=== PATIENT | female | born 1955 | race Caucasian/White ===

== ENCOUNTER 2020-06-10 16:49 | Outpatient (REF) | payer OTHER, SELFPAY ==
[2020-06-10 17:24] LABS: COVID-19 Test Negative (Negative)
== END 2020-06-10 16:50 | disposition home or self-care (01) ==
LOC: HO.LAB 16:49
PROVIDERS: PCP Internal Medicine; Visit Provider Internal Medicine
DX: Z20.828 Contact with and (suspected) exposure to other viral communicable diseases (principal)
CPT/HCPCS: 87635; C9803

== ENCOUNTER 2021-08-05 14:44 | Outpatient (REF) | payer OTHER, SELFPAY ==
--- NOTE | ~2021-08-05 | MM_ITS ---
EXAMINATION: MM SCREENING DIGITAL BREAST TOMOSYNTHESIS, BILATERAL CLINICAL INFORMATION: Screening. Asymptomatic. Left breast cancer, 1998. COMPARISON: Mammography: 03/30/2020, 11/28/2018, outside exam 08/11/2016 ([facility]) TECHNIQUE: Digital breast tomosynthesis is performed in both the craniocaudal and mediolateral oblique views along with computer-aided detection (CAD). Synthesized 2D images are generated from the tomosynthesis. FINDINGS: The breasts are heterogeneously dense, which may obscure small masses (ACR BI-RADS breast composition Category c). Parenchymal pattern is similar to prior studies. There is no developing density or architectural abnormality. The axilla and skin contours are unremarkable. No significant changes. MM/MM tomosynthesis screening BI IMPRESSION: No mammographic evidence of malignancy. ASSESSMENT: BI-RADS 1: Negative RECOMMENDATION: Routine annual mammography screening. This patient's information was entered into a reminder system with a target due date for their next mammogram.
== END 2021-08-05 14:45 | disposition home or self-care (01) ==
LOC: HO.MAMMO 14:44
PROVIDERS: PCP Internal Medicine; Visit Provider Internal Medicine
DX: Z12.31 Encounter for screening mammogram for malignant neoplasm of breast (principal)
CPT/HCPCS: 77063; 77067

== ENCOUNTER 2022-01-05 11:52 | Outpatient (REF) | payer OTHER, SELFPAY ==
[2022-01-05 13:11] LABS: Influenza A PCR NEGATIVE (Negative); Influenza B PCR NEGATIVE (Negative); Resp Syncy Virus RNA Qual PCR NEGATIVE (Negative); SARS COV2 PCR INHOUSE NEGATIVE (Negative)
== END 2022-01-05 11:53 | disposition home or self-care (01) ==
LOC: HO.LNP 11:52
PROVIDERS: Visit Provider Nurse Practitioner Family
DX: Z20.822 Contact with and (suspected) exposure to COVID-19 (principal); R09.89 Other specified symptoms and signs involving the circulatory and respiratory systems
CPT/HCPCS: 0241U

== ENCOUNTER 2022-03-21 08:10 | Outpatient (REF) | payer OTHER, SELFPAY ==
[2022-03-21 08:46] LABS: MANUAL DIFF FLAG NO
[2022-03-21 09:16] LABS: Basophils Absolute Auto 0.1 X10*3/uL (0.0-0.2); Basophils Percent Auto 1.1 % (0-2); Eosinophils Absolute Auto 0.4 X10*3/uL (0.0-0.4); Eosinophils Percent Auto 7.4 % (0-4); Hematocrit 39.8 % (37.0-47.0); Hemoglobin 13.2 g/dl (12.0-16.0); Imm Gran Abs Auto 0.01 X10*3/uL (0.00-0.03); Imm Gran Pct Auto 0.2 % (0.0-0.4); Lymphocytes Absolute Auto 1.1 X10*3/uL (1.2-4.9); Lymphocytes Percent Auto 23.4 % (20-40); Mean Corpuscular HGB Conc 33.2 g/dl (31.0-35.0); Mean Corpuscular Hemoglobin 29.6 pg (27.0-33.0); Mean Corpuscular Volume 89.2 fL (80.0-98.0); Mean Platelet Volume 11.1 fL (9.4-12.3); Monocytes Absolute Auto 0.4 X10*3/uL (0.1-1.2); Monocytes Percent Auto 8.3 % (2-11); Neutrophils Absolute Auto 2.8 x10*3/uL (2.0-8.3); Neutrophils Percent Auto 59.6 % (45-73); Platelet Count 334 X10*3/uL (160-400); Red Blood Count 4.46 X10*6/uL (4.20-5.50); Red Cell Distribution Width 13.7 % (11.0-16.0); White Blood Count 4.7 X10*3/uL (4.8-10.8)
[2022-03-21 09:21] LABS: Estimated Average Glucose 105 mg/dL; Hemoglobin A1c % 5.3 %
[2022-03-21 09:43] LABS: Alanine Aminotransferase 15 U/L (0-31); Albumin Level 4.5 g/dL (3.5-5.0); Alkaline Phosphatase 70 U/L (39-117); Anion Gap 15 (12-20); Aspartate Amino Transferase 19 U/L (5-31); Bilirubin Total 0.9 mg/dL (0.0-1.0); Blood Urea Nitrogen 16 mg/dL (9-16); Calcium 10.3 mg/dL (8.4-10.2); Carbon Dioxide 28 mmol/L (22-29); Chloride 102 mmol/L (96-108); Cholesterol 254 mg/dL; Estimated Glomerular Filt Rate > 60; Glucose Random 103 mg/dL (60-115); HDL Cholesterol 61 mg/dL; LDL Cholesterol Calculated 179 mg/dl; Potassium 5.1 mmol/L (3.3-5.1); Sodium 140 mmol/L (135-145); Total Protein 7.4 g/dL (6.5-8.0); Triglycerides 74 mg/dL
[2022-03-21 10:06] LABS: Free T4 (Free Thyroxine) 1.05 ng/dL (0.71-1.85); Insulin 3 uU/mL (2-29); Thyroid Stimulating Hormone 0.74 uIU/mL (0.32-4.0)
[2022-03-24 11:37] LABS: IgA 244 mg/dL (70-320); IgG 1305 mg/dL (600-1540); IgM 95 mg/dL (50-300)
[2022-03-25 16:22] LABS: Triiodothyronine T3 Reverse 16 ng/dL (8-25)
[2022-03-26 01:37] LABS: Apolipoprotein B 127 mg/dL (<90)
== END 2022-03-21 08:11 | disposition home or self-care (01) ==
LOC: HO.LAB 08:10
PROVIDERS: PCP Registered Nurse; Visit Provider Registered Nurse
DX: R73.01 Impaired fasting glucose (principal); R53.83 Other fatigue; E06.3 Autoimmune thyroiditis; E78.2 Mixed hyperlipidemia; E55.9 Vitamin D deficiency, unspecified
CPT/HCPCS: 80053; 80061; 82172; 82784; 83036; 83525; 84439; 84443; 84482; 85025

== ENCOUNTER 2022-04-04 09:39 | Outpatient (REF) | payer OTHER, SELFPAY ==
[2022-04-04 12:38] LABS: Phosphorus 3.6 mg/dL (2.7-4.5)
[2022-04-04 12:49] LABS: Uric Acid 3.8 mg/dL (2.4-5.7)
[2022-04-05 12:37] LABS: Calcium (PTHI) 9.9 mg/dL (8.6-10.4); PTHI 59 pg/mL (16-77)
[2022-04-06 17:11] LABS: Thyroglobulin Antibodies <1 IU/mL (< or = 1); Thyroid Peroxidase Antibodies 27 IU/mL (<9)
[2022-04-10 05:51] LABS: Lipoprotein A 170 nmol/L (<75)
== END 2022-04-04 09:40 | disposition home or self-care (01) ==
LOC: HO.LAB 09:39
PROVIDERS: Visit Provider Nurse Practitioner Family
DX: E06.3 Autoimmune thyroiditis (principal); R53.83 Other fatigue; E55.9 Vitamin D deficiency, unspecified; M10.9 Gout, unspecified
CPT/HCPCS: 36415; 82310; 83695; 83970; 84100; 84550; 86376; 86800

== ENCOUNTER 2022-04-19 14:59 | Outpatient (REF) | payer OTHER, SELFPAY ==
--- NOTE | ~2022-04-19 | US_ITS ---
EXAMINATION: US THYROID CLINICAL INFORMATION: Hyperparathyroidism, autoimmune thyroiditis. COMPARISON: None TECHNIQUE: Linear transducer grayscale and color Doppler examination with attention to the region of the thyroid. FINDINGS: SIZE: Measurements of the thyroid lobes and nodules are given in sagittal, anteroposterior and transverse dimensions respectively. Right Thyroid Lobe: 5.8 x 1.6 x 1.8 cm, volume 8.8 mL. Parenchyma: The gland echotexture is heterogeneous. Thyroid vascularity is increased. Left Thyroid Lobe: 5.4 x 1.7 x 1.6 cm, volume 7.7 mL. Parenchyma: The gland echotexture is heterogeneous. Thyroid vascularity is increased. Isthmus: 0.2 cm in maximum AP dimension. No focal thyroid nodule is seen. NODES: No lymphadenopathy is seen in the tissue surrounding the thyroid gland. No parathyroid adenoma is identified by ultrasound. US/US thyroid IMPRESSION: Upper normal-size slightly heterogeneous hypervascular thyroid gland. No parathyroid adenoma identified by ultrasound.
== END 2022-04-19 15:00 | disposition home or self-care (01) ==
LOC: HO.US 14:59
PROVIDERS: PCP Nurse Practitioner Family; Visit Provider Nurse Practitioner Family
DX: E21.2 Other hyperparathyroidism (principal); E06.3 Autoimmune thyroiditis
CPT/HCPCS: 76536

== ENCOUNTER 2022-08-07 16:21 | Outpatient (REF) | payer OTHER, SELFPAY ==
--- NOTE | ~2022-08-07 | MM_ITS ---
EXAMINATION: MM SCREENING DIGITAL BREAST TOMOSYNTHESIS, BILATERAL CLINICAL INFORMATION: Screening. Asymptomatic. Status post previous left breast lumpectomy. COMPARISON: Mammography: August 05, 2021 and studies dating back to October 22, 2015 TECHNIQUE: Digital breast tomosynthesis is performed in both the craniocaudal and mediolateral oblique views along with computer-aided detection (CAD). Synthesized 2D images are generated from the tomosynthesis. FINDINGS: The breasts are heterogeneously dense, which may obscure small masses (ACR BI-RADS breast composition Category c). There are no new significant masses, abnormal calcifications, or other abnormalities. MM/MM tomosynthesis screening BI IMPRESSION: No significant changes from prior exam. ASSESSMENT: BI-RADS 2: Benign RECOMMENDATION: Routine annual mammography screening. This patient's information was entered into a reminder system with a target due date for their next mammogram.
== END 2022-08-07 16:22 | disposition home or self-care (01) ==
LOC: HO.MAMMO 16:21
PROVIDERS: PCP Nurse Practitioner Family; Visit Provider Nurse Practitioner Family
DX: Z12.31 Encounter for screening mammogram for malignant neoplasm of breast (principal)
CPT/HCPCS: 77063; 77067

== ENCOUNTER 2022-10-03 09:35 | Outpatient (REF) | payer OTHER, SELFPAY ==
[2022-10-03 16:14] LABS: Influenza A PCR NEGATIVE (Negative); Influenza B PCR NEGATIVE (Negative); Resp Syncy Virus RNA Qual PCR NEGATIVE (Negative); SARS COV2 PCR INHOUSE POSITIVE (Negative)
== END 2022-10-03 09:36 | disposition home or self-care (01) ==
LOC: HO.LAB 09:35
PROVIDERS: Hospitalist; Visit Provider Nurse Practitioner Family
DX: Z20.822 Contact with and (suspected) exposure to COVID-19 (principal); B97.89 Other viral agents as the cause of diseases classified elsewhere; J98.8 Other specified respiratory disorders
CPT/HCPCS: 0241U

== ENCOUNTER 2022-10-10 07:53 | Outpatient (REF) | payer OTHER, SELFPAY ==
[2022-10-10 09:57] LABS: MANUAL DIFF FLAG NO
[2022-10-10 10:41] LABS: Basophils Percent Auto 0.7 % (0-2); Eosinophils Absolute Auto 0.2 X10*3/uL (0.0-0.4); Eosinophils Percent Auto 4.5 % (0-4); Hematocrit 39.4 % (37.0-47.0); Imm Gran Abs Auto 0.02 X10*3/uL (0.00-0.03); Imm Gran Pct Auto 0.4 % (0.0-0.4); Lymphocytes Absolute Auto 1.4 X10*3/uL (1.2-4.9); Lymphocytes Percent Auto 25.9 % (20-40); Mean Corpuscular Hemoglobin 29.9 pg (27.0-33.0); Mean Corpuscular Volume 90.6 fL (80.0-98.0); Monocytes Absolute Auto 0.5 X10*3/uL (0.1-1.2); Monocytes Percent Auto 8.4 % (2-11); Neutrophils Absolute Auto 3.2 x10*3/uL (2.0-8.3); Neutrophils Percent Auto 60.1 % (45-73); Platelet Count 326 X10*3/uL (160-400); Red Blood Count 4.35 X10*6/uL (4.20-5.50); Red Cell Distribution Width 13.6 % (11.0-16.0); White Blood Count 5.4 X10*3/uL (4.8-10.8)
[2022-10-10 10:49] LABS: Estimated Average Glucose 108 mg/dL; Hemoglobin A1c % 5.4 %
[2022-10-10 11:29] LABS: Alanine Aminotransferase 11 U/L (0-31); Albumin Level 4.2 g/dL (3.5-5.0); Alkaline Phosphatase 63 U/L (39-117); Anion Gap 13 (12-20); Aspartate Amino Transferase 17 U/L (5-31); Blood Urea Nitrogen 18 mg/dL (9-16); Calcium 9.5 mg/dL (8.4-10.2); Carbon Dioxide 28 mmol/L (22-29); Chloride 103 mmol/L (96-108); Cholesterol 219 mg/dL; Estimated Glomerular Filt Rate > 60; Glucose Random 90 mg/dL (60-115); HDL Cholesterol 59 mg/dL; LDL Cholesterol Calculated 149 mg/dl; Potassium 4.7 mmol/L (3.3-5.1); Sodium 139 mmol/L (135-145); Total Protein 6.9 g/dL (6.5-8.0); Triglycerides 58 mg/dL
[2022-10-10 11:49] LABS: Insulin 2 uU/mL (2-29); Vitamin D 25-OH Total 29.2 ng/mL (>30)
[2022-10-10 14:02] LABS: Reflex LDLD? No
[2022-10-12 02:14] LABS: Thyroid Peroxidase Antibodies 22 IU/mL (<9)
[2022-10-12 02:44] LABS: DHEA Sulfate 77 mcg/dL (9-118)
[2022-10-12 16:24] LABS: CRP High Sensitivity 1.9 mg/L
[2022-10-16 18:23] LABS: Apolipoprotein A1 166 mg/dL (>=125); Apolipoprotein B 112 mg/dL (<90)
== END 2022-10-10 07:54 | disposition home or self-care (01) ==
LOC: HO.LAB 07:53
PROVIDERS: Visit Provider Registered Nurse
DX: R94.5 Abnormal results of liver function studies (principal); R94.6 Abnormal results of thyroid function studies; R94.7 Abnormal results of other endocrine function studies; R94.8 Abnormal results of function studies of other organs and systems; M13.0 Polyarthritis, unspecified; E61.7 Deficiency of multiple nutrient elements; Z13.1 Encounter for screening for diabetes mellitus; Z13.21 Encounter for screening for nutritional disorder; Z13.818 Encounter for screening for other digestive system disorders; Z13.89 Encounter for screening for other disorder; Z79.899 Other long term (current) drug therapy
CPT/HCPCS: 36415; 80053; 80061; 82172; 82306; 82627; 83036; 83525; 85025; 86141; 86376

== ENCOUNTER 2022-11-02 09:01 | Outpatient (REF) | payer OTHER, SELFPAY ==
--- NOTE | ~2022-11-02 | XR_ITS ---
EXAMINATION: XR CHEST CLINICAL INFORMATION: Shortness of breath, cough, fatigue. COMPARISON: 04/07/2022 chest radiographs. TECHNIQUE: 2 views of the chest were obtained. FINDINGS: No significant abnormality is noted involving the heart, lungs, mediastinum, bony thorax or soft tissues. XR/XR chest 2V IMPRESSION: No acute cardiopulmonary process.
== END 2022-11-02 09:02 | disposition home or self-care (01) ==
LOC: HO.XRAY 09:01
PROVIDERS: PCP Registered Nurse; Visit Provider Registered Nurse
DX: R06.02 Shortness of breath (principal); R05.9 Cough, unspecified; R53.83 Other fatigue
CPT/HCPCS: 71046

== ENCOUNTER 2023-03-14 16:00 | Outpatient (RCR) | payer OTHER, SELFPAY | END 2023-06-06 13:11 | disposition home or self-care (01) | LOC: HO.PT 16:00 | PROVIDERS: PCP Registered Nurse; Visit Provider Registered Nurse | DX: M54.50 Low back pain, unspecified (principal) | CPT/HCPCS: 97012; 97110; 97140; 97161 ==